=== PATIENT | male | born 1980 | race American Indian/Alaskan Native ===

== ENCOUNTER 2017-07-14 13:54 | Emergency (ER) | payer SELFPAY ==
[2017-07-14 14:23] VITALS: BP 139/86
--- NOTE | 2017-07-14 19:11 | Emergency Department Report ---
HPI - General Chief Complaint: Earache Time Seen by Provider: 07/14/17 18:11 - HPI HPI: This is a 36-year-old male who presents to ED complaining of left-sided sore throat for the past 4 days. Patient states the pain has gotten a bit worse and very difficult to swallow. Patient states pain is worsened with swallowing either stated or fluid. Patient admits low-grade fever. Patient states she does not take any medications and has not taken any medicines. He denies chest pain, chills, nausea, vomiting, abdominal pain ED Past Medical Hx - Past Medical History Previous Medical History?: No Additional medical history: BRONCHITIS - Surgical History Additional Surgical History: hernia repair at age 10 - Social History Smoking Status: Current Every Day Smoker Substance Use Type: None - Medications Home Medications: Home Medications Medication Instructions Recorded Confirmed Last Taken Type HYDROcodone/APAP 5-325 [[address] 1 each PO Q6HR PRN #14 tablet 02/27/14 Unknown Rx 5-325 mg TAB] Ibuprofen [Motrin] 800 mg PO Q8H PRN #20 tablet 02/27/14 Unknown Rx Fluticasone Propionate [Flonase] 100 mcg NS BID #1 spray.susp 08/05/14 Unknown Rx Loratadine [Claritin] 10 mg PO DAILY #30 tablet 08/05/14 Unknown Rx methOCARBAMOL [Robaxin] 500 mg PO BID #20 tab 08/05/14 Unknown Rx Amoxicillin/K Clav Tab [Augmentin 1 tab PO BID #20 tablet 01/20/15 Unknown Rx 875MG] Amoxicillin [Amoxicillin TAB] 875 mg PO BID #10 tablet 07/14/17 Unknown Rx Naproxen [Naprosyn TAB] 500 mg PO BID #20 tablet 07/14/17 Unknown Rx predniSONE [Deltasone] 10 mg PO QDAY #4 tab 07/14/17 Unknown Rx ED Review of Systems ROS: Stated complaint: EAR ACHE/SORE THROAT/BODY ACHES/SWEATS Other details as noted in HPI Constitutional: denies: chills, fever Eyes: denies: eye pain, eye discharge, vision change ENT: throat pain. denies: ear pain, dental pain, hearing loss Respiratory: denies: cough, shortness of breath, wheezing Cardiovascular: denies: chest pain, palpitations Endocrine: no symptoms reported Gastrointestinal: denies: abdominal pain, nausea, diarrhea Genitourinary: denies: urgency, dysuria Musculoskeletal: denies: back pain, joint swelling, arthralgia Skin: denies: rash, lesions Neurological: denies: headache, weakness, paresthesias Psychiatric: denies: anxiety, depression Hematological/Lymphatic: denies: easy bleeding, easy bruising Physical Exam - Physical Exam Vital Signs: Vital Signs 07/14/17 14:19 Temperature 100.3 F H Pulse Rate 77 Respiratory 18 Rate Blood Pressure 139/86 O2 Sat by Pulse 97 Oximetry Physical Exam: GENERAL: Alert and oriented x3, no apparent distress, Normal Gait, atraumatic. HEAD: Head is normocephalic and a-traumatic. EYES: Extra ocular muscles are intact. Pupils are equal, round, and reactive to light and accommodation. EARS: symetrical, atraumatic, non tender, ear canal clear and moderate cerumen, tympanic membrance non inflamed. gross auditory nml bilaterally. NOSE: Nose symetrical, Nontender,Nares appeared normal. MOUTH: Mouth is well hydrated and without lesions. Tonsils erythematous and mildly swollen, Uvula midline, Tongue not elevated. Mucous membranes are moist. Posterior pharynx with exudate, no lesions. Patent airways. NECK: Supple. Non edematous, No carotid bruits. anterior cervical lymphadenopathy , no thyromegaly. No C-spine tenderness LUNGS: Symetrical with respiration, No wheezing, no rales or crackles, CTAB. HEART: S1, S2 present, regular rate and rhythm without murmur, no rubs, no gallops. Non tender to palpation ABDOMEN: No organomegaly was noted,Positive bowel sounds, soft, and non- distended. . Nontender to palpation on all Quadrants, NO CVA tenderness. SKIN: Warm and dry, No lesions, No ulceration or induration present. ED Course Vital Signs 07/14/17 14:19 Temperature 100.3 F H Pulse Rate 77 Respiratory 18 Rate Blood Pressure 139/86 O2 Sat by Pulse 97 Oximetry ED Medical Decision Making - Medical Decision Making 22-year-old male presents with strep pharyngitis. ED course: Rapid strep tests ordered rapid strep test positive Patient received 1 dose of Tylenol, Magic mouthwash, 60 mg of prednisone. Fever responsive to one dose of Tylenol. Vital signs stable patient is in no acute or respiratory distress. Discussed findings with patient about the negative strep. due to 3 of 5 Cent[employer]'s criteria positive will give patient oral medication of amoxicillin Discussed treatment in ED with patient Discussed the patient that strep throat is contagious and to limit sharing spoons and such. Application to be sent home on Motrin and a couple of days worth of prednisone. Discussed with patient follow-up with primary care physician. Patient verbally states he understands and will comply to follow-up. Critical care attestation.: If time is entered above; I have spent that time in minutes in the direct care of this critically ill patient, excluding procedure time. ED Disposition Clinical Impression: Pharyngitis Qualifiers: Pharyngitis/tonsillitis etiology: unspecified etiology Qualified Code(s): J02.9 - Acute pharyngitis, unspecified Disposition: TO HOME OR SELFCARE Is pt being admited?: No Does the pt Need Aspirin: No Condition: Stable Instructions: Pharyngitis (ED), Strep Throat (ED), Tonsillitis (ED) Prescriptions: Amoxicillin [Amoxicillin TAB] 875 mg PO BID #10 tablet Naproxen [Naprosyn TAB] 500 mg PO BID #20 tablet predniSONE [Deltasone] 10 mg PO QDAY #4 tab Referrals: PRIMARY CARE, [Primary Care Provider] - 3-5 Days [facility] [Outside] - 3-5 Days [facility] [Outside] - 3-5 Days [facility] [Outside] - 3-5 Days Forms: Work/School Release Form(ED) Time of Disposition: 19:46
[2017-07-14] MEDS ORDERED: DELTASONE PO ONE (19:26)
[2017-07-14] MEDS ORDERED: TYLENOL PO ONE (19:26)
[2017-07-14] MEDS ORDERED: MAGIC MOUTHWASH PO ONE (20:30)
== END 2017-07-14 20:04 | disposition home or self-care (01) ==
LOC: ED 13:54
DX: J02.9 Acute pharyngitis, unspecified (principal); F17.200 Nicotine dependence, unspecified, uncomplicated
CPT/HCPCS: 87116; 87430; 99282; J7512

== ENCOUNTER 2018-01-13 10:26 | Emergency (ER) | payer SELFPAY | END 2018-01-13 11:45 | disposition left against medical advice (07) | LOC: ED 10:26 | DX: J11.1 Influenza due to unidentified influenza virus with other respiratory manifestations (principal); Z53.21 Procedure and treatment not carried out due to patient leaving prior to being seen by health care provider ==